=== PATIENT | female | born 1980 | race Caucasian/White ===

== ENCOUNTER 2018-06-01 16:42 | Emergency (ER) | payer MEDICAID ==
[~2018-06-01] VITALS: Ht 177.8 cm; Wt 128.0 kg
[2018-06-01] MEDS ORDERED: SODIUM CHLORIDE 0.9% 1,000 ML IV ONE (17:09)
[2018-06-01] MEDS ORDERED: MORPHINE SULFATE 4 MG/ML CPJ (NOT FOR IM USE) IV STA (17:09)
[2018-06-01] MEDS ORDERED: ONDANSETRON HCL 4MG/2ML VIAL IV STA (17:09)
[2018-06-01] MEDS ORDERED: TETRACAINE 0.5% OPHTH DROPS 4ML RIGHTEYE ONE (17:15)
[2018-06-01] MEDS ORDERED: FLUORESCEIN SODIUM 1MG/STRIP BOTHEYE ONE (17:15)
[2018-06-01 18:16] LABS: CHLORIDE 100 mEq/L (98-107)
[2018-06-01 18:17] LABS: EOSINOPHILS % 0.8 % (0.0-5.0); HEMATOCRIT. 36.4 % (36.0-48.0); HEMOGLOBIN. 11.3 g/dL (12.0-16.0); LYMPHOCYTES % 25.1 % (20.0-50.0); MEAN CORPUSCULAR HEMOGLOBIN 21.5 pg (28.0-32.0); MEAN CORPUSCULAR VOLUME 68.9 fL (81.0-99.0); MEAN PLATELET VOLUME 9.3 fl (7.4-10.4); MONOCYTES % 5.3 % (2.0-8.0); NEUTROPHILS % 67.8 % (40.0-76.0); PLATELET 283 x1000/uL (130-400); RED BLOOD CELL COUNT 5.28 mill/uL (4.2-5.4); RED CELL DISTRIBUTION WIDTH 16.2 % (11.6-14.6)
[2018-06-01 18:41] LABS: PLATELET ESTIMATE NORMAL
[2018-06-01 18:42] LABS: HCG SCREEN NEGATIVE
[2018-06-01 18:59] LABS: INR 0.9; PARTIAL THROMBOPLASTIN TIME 26.7 sec (23.4-31.0); PROTHROMBIN TIME 9.8 sec (9.4-11.6)
[2018-06-01] MEDS ORDERED: HYDROCODONE/ACETAMINOPHEN 5/325MG TABLET PO ONE (19:15)
[2018-06-01 19:35] VITALS: BP 133/87
== END 2018-06-01 19:48 | disposition home or self-care (01) ==
LOC: ER 16:42
DX: H57.11 Ocular pain, right eye (principal); H53.8 Other visual disturbances; H53.141 Visual discomfort, right eye; F41.9 Anxiety disorder, unspecified; E11.9 Type 2 diabetes mellitus without complications; F31.9 Bipolar disorder, unspecified; F12.10 Cannabis abuse, uncomplicated
CPT/HCPCS: 36415; 70450; 71045; 80053; 82962; 84703; 85025; 85610; 85730; 86850; 86900; 86901; 93005; 96361; 96374; 96375; 99285; J2270; J2405; J7030; Z7610

== ENCOUNTER 2018-08-06 19:29 | Emergency (ER) | payer MEDICAID, OTHER ==
[~2018-08-06] VITALS: Ht 177.8 cm; Wt 162.0 kg
[2018-08-06] MEDS ORDERED: SODIUM CHLORIDE 0.9% 1,000 ML IV ONE (20:05)
[2018-08-06] MEDS ORDERED: KETOROLAC 30MG/ML VIAL IV STA (20:05)
[2018-08-06] MEDS ORDERED: ONDANSETRON HCL 4MG/2ML INJ IV STA (20:05)
[2018-08-06 21:03] LABS: BASOPHILS % 1.1 % (0.0-2.0); EOSINOPHILS % 0.9 % (0.0-5.0); HEMATOCRIT. 37.4 % (36.0-48.0); HEMOGLOBIN. 11.8 g/dL (12.0-16.0); LYMPHOCYTES % 20.2 % (20.0-50.0); MEAN CORPUSCULAR HEMOGLOBIN 22.4 pg (28.0-32.0); MEAN CORPUSCULAR VOLUME 71.1 fL (81.0-99.0); MEAN PLATELET VOLUME 9.5 fl (7.4-10.4); MONOCYTES % 3.8 % (2.0-8.0); PLATELET 299 x1000/uL (130-400); RED BLOOD CELL COUNT 5.26 mill/uL (4.2-5.4); RED CELL DISTRIBUTION WIDTH 17.2 % (11.6-14.6)
[2018-08-06 21:06] LABS: CHLORIDE 100 mEq/L (98-107)
[2018-08-06 21:10] LABS: PROTHROMBIN TIME 9.7 sec (9.1-11.1)
[2018-08-06 21:11] LABS: CLARITY URINE TURBID (CLEAR); COLOR URINE YELLOW (YELLOW); KETONES URINE TRACE (NEGATIVE); LEUKOCYTE ESTERASE URINE 3+ (NEGATIVE); NITRITE URINE POSITIVE (NEGATIVE); OCCULT BLOOD URINE 2+ (NEGATIVE); PH URINE 5.5 (4.5-8.0); PROTEIN URINE 2+ (NEGATIVE); UROBILINOGEN URINE 0.2 E.U./dL (0.2-1.0)
[2018-08-06] MEDS ORDERED: IOHEXOL-300 100 ML BOTTLE ONE (23:31)
[2018-08-07] MEDS ORDERED: CEFTRIAXONE 1 G PREMIX 50 ML IV NR (01:15)
[2018-08-07 02:00] VITALS: BP 147/84
== END 2018-08-07 02:10 | disposition home or self-care (01) ==
LOC: ER 19:29
DX: R10.84 Generalized abdominal pain (principal); N39.0 Urinary tract infection, site not specified; E11.65 Type 2 diabetes mellitus with hyperglycemia; I10 Essential (primary) hypertension; D50.9 Iron deficiency anemia, unspecified; F31.9 Bipolar disorder, unspecified; F12.10 Cannabis abuse, uncomplicated; Z98.890 Other specified postprocedural states
CPT/HCPCS: 36415; 74177; 80053; 81003; 81025; 83690; 85025; 85610; 87077; 87086; 87186; 96361; 96365; 96375; 99285; J0696; J1885; J2405; J7030; Q9967; Z7610

== ENCOUNTER 2019-08-24 11:05 | Emergency (ER) | payer MEDICARE, OTHER ==
[~2019-08-24] VITALS: Ht 177.8 cm; Wt 177.0 kg
[2019-08-24] MEDS ORDERED: SODIUM CHLORIDE 0.9% 1,000 ML IV ONE (11:34)
[2019-08-24 11:44] LABS: BASOPHILS % 1.3 % (0.0-2.0); EOSINOPHILS % 0.8 % (0.0-5.0); HEMATOCRIT. 40.7 % (36.0-48.0); HEMOGLOBIN. 13.3 g/dL (12.0-16.0); LYMPHOCYTES % 19.4 % (20.0-50.0); MEAN CORPUSCULAR HEMOGLOBIN 25.5 pg (28.0-32.0); MEAN PLATELET VOLUME 9.4 fl (7.4-10.4); MONOCYTES % 4.4 % (2.0-8.0); NEUTROPHILS % 74.1 % (40.0-76.0); PLATELET 235 x1000/uL (130-400); RED BLOOD CELL COUNT 5.22 mill/uL (4.2-5.4); RED CELL DISTRIBUTION WIDTH 15.1 % (11.6-14.6)
[2019-08-24] MEDS ORDERED: METOCLOPRAMIDE HCL 10MG/2ML VIAL IV ONE (11:45)
[2019-08-24] MEDS ORDERED: DIPHENHYDRAMINE 50MG/ML VIAL IV ONE (11:45)
[2019-08-24 11:50] LABS: PROTHROMBIN TIME 10.4 sec (9.6-11.0)
[2019-08-24 11:51] LABS: CHLORIDE 99 mEq/L (98-107)
[2019-08-24 12:02] LABS: BETA HYDROXYBUTYRATE 1.6 mMol/L (0.0-0.3)
[2019-08-24] MEDS ORDERED: KETOROLAC 30MG/ML VIAL IV ONE (12:45)
[2019-08-24 12:53] LABS: HCG SCREEN NEGATIVE
[2019-08-24 14:53] LABS: CLARITY URINE CLOUDY (CLEAR); COLOR URINE YELLOW (YELLOW); KETONES URINE 3+ (NEGATIVE); LEUKOCYTE ESTERASE URINE NEGATIVE (NEGATIVE); NITRITE URINE NEGATIVE (NEGATIVE); OCCULT BLOOD URINE TRACE (NEGATIVE); PROTEIN URINE 2+ (NEGATIVE); SPECIFIC GRAVITY URINE 1.042 (1.005-1.030); UROBILINOGEN URINE 0.2 E.U./dL (0.2-1.0)
[2019-08-24 15:28] VITALS: BP 128/95
== END 2019-08-24 15:29 | disposition home or self-care (01) ==
LOC: ER 11:05
DX: G43.909 Migraine, unspecified, not intractable, without status migrainosus (principal); E11.65 Type 2 diabetes mellitus with hyperglycemia; E86.0 Dehydration; I10 Essential (primary) hypertension; F12.10 Cannabis abuse, uncomplicated; E78.00 Pure hypercholesterolemia, unspecified; F32.9 Major depressive disorder, single episode, unspecified; Z90.49 Acquired absence of other specified parts of digestive tract; Z79.4 Long term (current) use of insulin
CPT/HCPCS: 36415; 70450; 80053; 81003; 82010; 83690; 84484; 84703; 85025; 85610; 87077; 87086; 87186; 93005; 96361; 96374; 96375; 99284; J1200; J1885; J2765; J7030

== ENCOUNTER 2024-02-14 10:05 | Inpatient (IN) | payer BC, MEDICAID ==
[~2024-02-14] VITALS: Ht 170.2 cm; Wt 222.3 kg
[2024-02-14 11:08] LABS: ALANINE AMINOTRANSFERASE 24 IU/L (10-49); ALBUMIN 3.2 g/dL (3.2-4.8); ASPARTATE AMINOTRANSFERASE 25 IU/L (<34); BILIRUBIN TOTAL 0.3 mg/dL (0.1-1.0); CALCIUM 7.6 mg/dL (8.7-10.4); CARBON DIOXIDE 27 mEq/L (21-32); CHLORIDE 107 mEq/L (98-107); CREATININE 1.4 mg/dL (0.6-1.0); GLUCOSE 61 mg/dL (70-105); SODIUM 138 mEq/L (136-145); UREA NITROGEN BLOOD 26 mg/dL (9-23)
[2024-02-14 11:11] LABS: HCG SCREEN NEGATIVE
[2024-02-14 11:18] LABS: BASOPHILS % 1.5 % (0.0-2.0); DIFFERENTIAL COMMENT 0; HEMATOCRIT. 29.6 % (36.0-48.0); MEAN CORPUSCULAR HEMOGLOBIN 24.7 pg (28.0-32.0); MEAN CORPUSCULAR HGB CONC 30.6 g/dL (31.0-37.0); MEAN CORPUSCULAR VOLUME 80.6 fL (81.0-99.0); MEAN PLATELET VOLUME 9.6 fl (7.4-10.4); MONOCYTES % 7.4 % (2.0-8.0); NEUTROPHILS % 73.1 % (40.0-76.0); PLATELET 172 x1000/uL (130-400); RED BLOOD CELL COUNT 3.67 mill/uL (4.2-5.4); RED CELL DISTRIBUTION WIDTH 17.8 % (11.6-14.6); WHITE BLOOD COUNT 8.3 x1000/uL (4.5-11.0)
[2024-02-14] MEDS: DEXTROSE 50% WATER 50ML SYRINGE IV ONE (13:32)
[2024-02-14 14:26] LABS: DIFFERENTIAL COMMENT 0; EOSINOPHILS % 0.8 % (0.0-5.0); HEMATOCRIT. 31.6 % (36.0-48.0); HEMOGLOBIN. 9.7 g/dL (12.0-16.0); LYMPHOCYTES % 10.7 % (20.0-50.0); MEAN CORPUSCULAR HEMOGLOBIN 24.5 pg (28.0-32.0); MEAN CORPUSCULAR HGB CONC 30.8 g/dL (31.0-37.0); MEAN CORPUSCULAR VOLUME 79.5 fL (81.0-99.0); MEAN PLATELET VOLUME 9.2 fl (7.4-10.4); MONOCYTES % 4.4 % (2.0-8.0); NEUTROPHILS % 83.1 % (40.0-76.0); PLATELET 178 x1000/uL (130-400); RED BLOOD CELL COUNT 3.97 mill/uL (4.2-5.4); RED CELL DISTRIBUTION WIDTH 18.2 % (11.6-14.6); WHITE BLOOD COUNT 12.4 x1000/uL (4.5-11.0)
[2024-02-14 14:35] LABS: PROTHROMBIN TIME 11.5 sec (9.6-11.0)
[2024-02-14 14:41] LABS: ALANINE AMINOTRANSFERASE 24 IU/L (10-49); ALBUMIN 3.6 g/dL (3.2-4.8); ASPARTATE AMINOTRANSFERASE 22 IU/L (<34); BILIRUBIN TOTAL 0.4 mg/dL (0.1-1.0); CARBON DIOXIDE 25 mEq/L (21-32); CHLORIDE 107 mEq/L (98-107); CREATININE 1.4 mg/dL (0.6-1.0); POTASSIUM 4.2 mEq/L (3.5-5.1); PROTEIN TOTAL 7.1 g/dL (6.0-8.3); SODIUM 136 mEq/L (136-145); UREA NITROGEN BLOOD 27 mg/dL (9-23)
[2024-02-14 14:47] LABS: GLUCOSE 43 mg/dL (70-105)
[2024-02-14 15:02] LABS: HCG SCREEN NEGATIVE
[2024-02-14] MEDS ORDERED: IPRATROPIUM/ALBUTEROL 0.5-3(2.5)MG/3ML NEB HHN PRN (16:30)
[2024-02-14] MEDS ORDERED: ACETAMINOPHEN 325MG TABLET PO PRN (16:30)
[2024-02-14 17:11] LABS: IRON 32 ug/dL (50-170); TOTAL IRON BINDING CAPACITY 333 ug/dl (250-425)
[2024-02-14 17:13] LABS: BETA HYDROXYBUTYRATE < 0.1 mMol/L (0.0-0.3)
[2024-02-14 17:14] LABS: CORTISOL 15.5 ucg/dL; FERRITIN 26 ng/mL (10-291); VITAMIN B12 SERUM 1271 pg/mL (211-911)
[2024-02-14] MEDS ORDERED: HYDRALAZINE 20MG/ML VIAL IV PRN (17:30)
[2024-02-14] MEDS ORDERED: ATROPINE SULFATE 1MG/ML VIAL IV PRN (17:30)
[2024-02-14] MEDS: CEFTRIAXONE 1GM/50ML 50 ML IV SCH (18:00)
[2024-02-14] MEDS: DEXTROSE 50% WATER 50ML SYRINGE IV PRN (18:19)
[2024-02-14] MEDS: BLOOD SUGAR DIAGNOSTIC STRIP TEST SCH (18:19)
[2024-02-14] MEDS: DEXTROSE 5% WATER 1,000 ML IV SCH (18:20)
[2024-02-14] MEDS: AMLODIPINE 5MG TABLET PO NR (18:20)
[2024-02-14] MEDS ORDERED: DEXTROSE 5% WATER 1,000 ML IV PRN (18:45)
[2024-02-14] MEDS ORDERED: LORAZEPAM 4MG/ML INJ IV PRN (19:00)
[2024-02-14] MEDS: HYDRALAZINE 20MG/ML VIAL IV PRN (19:12)
[2024-02-14] MEDS: HYDRALAZINE HCL 100MG TABLET PO SCH (19:26)
[2024-02-14] MEDS: LISINOPRIL 40MG TABLET PO SCH (19:27)
[2024-02-14] MEDS: FUROSEMIDE 40MG/4ML VIAL IVP SCH (19:27)
[2024-02-14] MEDS: ATORVASTATIN CALCIUM 40MG TABLET PO SCH (22:05)
[2024-02-14] MEDS: TIZANIDINE HCL 2MG TABLET PO SCH (22:05)
[2024-02-14 22:38] VITALS: BP 180/97; PULSE 56; RESP 14; TEMP 98
[2024-02-14 23:44] LABS: CREATINE KINASE 142 IU/L (34-145); TROPONIN I HIGH SENSITIVITY 7 ng/L (3.0-34)
[2024-02-15 04:16] VITALS: BP 170/100; PULSE 56; RESP 14; TEMP 97.7
[2024-02-15 08:00] VITALS: BP 156/88; PULSE 60; RESP 16; TEMP 98.4
[2024-02-15] MEDS ORDERED: AMLODIPINE 10MG TABLET PO SCH (09:00)
[2024-02-15 09:24] LABS: BASOPHILS % 1.2 % (0.0-2.0); DIFFERENTIAL COMMENT 0; EOSINOPHILS % 1.7 % (0.0-5.0); HEMATOCRIT. 31.4 % (36.0-48.0); HEMOGLOBIN. 9.8 g/dL (12.0-16.0); LYMPHOCYTES % 15.7 % (20.0-50.0); MEAN CORPUSCULAR HEMOGLOBIN 24.9 pg (28.0-32.0); MEAN CORPUSCULAR HGB CONC 31.2 g/dL (31.0-37.0); MEAN CORPUSCULAR VOLUME 79.9 fL (81.0-99.0); MEAN PLATELET VOLUME 9.5 fl (7.4-10.4); MONOCYTES % 5.1 % (2.0-8.0); NEUTROPHILS % 76.3 % (40.0-76.0); PLATELET 209 x1000/uL (130-400); RED BLOOD CELL COUNT 3.93 mill/uL (4.2-5.4); RED CELL DISTRIBUTION WIDTH 17.9 % (11.6-14.6); WHITE BLOOD COUNT 9.3 x1000/uL (4.5-11.0)
[2024-02-15] MEDS: PANTOPRAZOLE SODIUM 40 MG/VIAL IV SCH (09:25)
[2024-02-15] MEDS: PREGABALIN 50 MG CAPSULE PO SCH (09:27)
[2024-02-15 09:49] LABS: ALANINE AMINOTRANSFERASE 22 IU/L (10-49); ALBUMIN 3.5 g/dL (3.2-4.8); ASPARTATE AMINOTRANSFERASE 27 IU/L (<34); BILIRUBIN TOTAL 0.5 mg/dL (0.1-1.0); CALCIUM 8.2 mg/dL (8.7-10.4); CARBON DIOXIDE 26 mEq/L (21-32); CHLORIDE 104 mEq/L (98-107); CHOLESTEROL 97 mg/dL (<200); CREATINE KINASE 128 IU/L (34-145); CREATININE 1.2 mg/dL (0.6-1.0); GLUCOSE 109 mg/dL (70-105); HDL CHOLESTEROL 58 mg/dL (>65); LDL CHOLESTEROL 23 mg/dL (5-100); POTASSIUM 4.2 mEq/L (3.5-5.1); PROTEIN TOTAL 6.7 g/dL (6.0-8.3); SODIUM 137 mEq/L (136-145); T4 FREE 1.16 ng/dL (0.89-1.76); THYROID STIMULATING HORMONE 3.25 uIU/mL (0.55-4.78); TRIGLYCERIDE 78 mg/dL (0-150); TROPONIN I HIGH SENSITIVITY 7 ng/L (3.0-34); UREA NITROGEN BLOOD 23 mg/dL (9-23)
[2024-02-15] MEDS: DEXT 5%/0.9% NACL 1,000 ML IV ONE (10:44)
[2024-02-15 12:00] VITALS: BP 163/79; PULSE 53; RESP 13; TEMP 98.4
[2024-02-15] MEDS ORDERED: DEXTROSE 50% WATER 50ML SYRINGE IV PRN (13:45)
[2024-02-15 16:00] VITALS: BP 156/88; PULSE 54; RESP 20; TEMP 98.4
[2024-02-15] MEDS: BLOOD SUGAR DIAGNOSTIC STRIP TEST SCH (17:09)
[2024-02-15] MEDS: INSULIN LISPRO 100 UNITS/ML SUBCUT SCH (17:20)
[2024-02-15] MEDS ORDERED: INSULIN LISPRO 100 UNITS/ML SUBCUT SCH ×2 (17:20)
[2024-02-15 20:00] VITALS: BP 184/105; PULSE 54; RESP 16; TEMP 97.8
[2024-02-15] MEDS: HYDROCODONE/ACETAMINOPHEN 10/325MG TABLET PO PRN (23:14)
[2024-02-16] VITALS: BP 181/98; PULSE 58; RESP 12; TEMP 98.1
[2024-02-16 00:48] LABS: CLARITY URINE CLEAR (CLEAR); COLOR URINE YELLOW (YELLOW); GLUCOSE URINE NEGATIVE (NEGATIVE); KETONES URINE NEGATIVE (NEGATIVE); LEUKOCYTE ESTERASE URINE NEGATIVE (NEGATIVE); NITRITE URINE NEGATIVE (NEGATIVE); OCCULT BLOOD URINE 2+ (NEGATIVE); PROTEIN URINE 3+ (NEGATIVE); SPECIFIC GRAVITY URINE 1.013 (1.005-1.030)
[2024-02-16 00:59] LABS: *AMPHETAMINES SCREEN URINE NEGATIVE (NEGATIVE); *BARBITURATES SCREEN URINE NEGATIVE (NEGATIVE); *BENZODIAZEPINES SCREEN URINE NEGATIVE (NEGATIVE); *COCAINE SCREEN URINE NEGATIVE (NEGATIVE); CANNABINOID URINE SCREEN NEGATIVE (NEGATIVE); ECSTASY MDMA SCREEN URINE NEGATIVE (NEGATIVE); METHADONE URINE SCREEN Neg (NEGATIVE); OPIATES URINE SCREEN NEGATIVE (NEGATIVE); PHENCYCLIDINE URINE SCREEN NEGATIVE (NEGATIVE)
[2024-02-16 02:30] LABS: SQUAMOUS EPITHELIAL CELL URINE FEW /lpf (RARE/1+)
[2024-02-16 02:31] LABS: RBC URINE 15-25 /hpf (0-2); WBC URINE 0-2 /hpf (0-2)
[2024-02-16 02:32] LABS: BACTERIA URINE NONE SEEN
[2024-02-16 04:00] VITALS: BP 159/86; PULSE 66; RESP 18; TEMP 98
[2024-02-16 07:28] LABS: CALCIUM 8.2 mg/dL (8.7-10.4); CREATININE 1.2 mg/dL (0.6-1.0); POTASSIUM 4.4 mEq/L (3.5-5.1)
[2024-02-16 08:00] VITALS: BP 154/95; RESP 19; TEMP 98.2
[2024-02-16] MEDS ORDERED: LORAZEPAM 2MG/ML INJ IV PRN (09:36)
[2024-02-16] MEDS ORDERED: NALOXONE HCL 0.4MG/ML VIAL IV PRN (09:45)
[2024-02-16] MEDS ORDERED: TIZA-191 PO (10:10)
[2024-02-16] MEDS ORDERED: LANTUSUD SUBCUT (10:10)
[2024-02-16] MEDS ORDERED: LIP40 PO (10:10)
[2024-02-16] MEDS ORDERED: HYDR100T26 PO (10:10)
[2024-02-16] MEDS ORDERED: LISI40TA13 PO (10:10)
[2024-02-16] MEDS ORDERED: PREG50CA PO (10:10)
[2024-02-16 12:00] VITALS: BP 133/83; PULSE 58; RESP 18; TEMP 94
[2024-02-16] MEDS: HYDRALAZINE HCL 100MG TABLET PO SCH (13:45)
[2024-02-16 15:05] VITALS: BP 133/83; PULSE 58; TEMP 96; O2SAT 98
[2024-02-16 16:00] VITALS: BP 138/86; PULSE 56; RESP 19; TEMP 96
[2024-02-17] MEDS ORDERED: FAMOTIDINE 20MG TABLET PO SCH (09:00)
[2024-02-18 13:12] LABS: INSULIN 3.3 uIU/mL (2.6-24.9)
== END 2024-02-16 17:26 | disposition home or self-care (01) | DRG 917 ==
LOC: ER 10:05 → EDBEDREQ 13:29 → 3WST 21:22
PROVIDERS: ADMIT Internal Medicine; ATTEND Internal Medicine
DX: T38.3X1A Poisoning by insulin and oral hypoglycemic [antidiabetic] drugs, accidental (unintentional), initial encounter (principal); G93.41 Metabolic encephalopathy; N17.9 Acute kidney failure, unspecified; Z68.45 Body mass index [BMI] 70 or greater, adult; E11.649 Type 2 diabetes mellitus with hypoglycemia without coma; D72.829 Elevated white blood cell count, unspecified; F41.9 Anxiety disorder, unspecified; I45.10 Unspecified right bundle-branch block; N93.9 Abnormal uterine and vaginal bleeding, unspecified; E66.01 Morbid (severe) obesity due to excess calories; D50.9 Iron deficiency anemia, unspecified; F31.9 Bipolar disorder, unspecified; E78.00 Pure hypercholesterolemia, unspecified; G47.33 Obstructive sleep apnea (adult) (pediatric); I95.9 Hypotension, unspecified; R00.1 Bradycardia, unspecified; N18.9 Chronic kidney disease, unspecified; I12.9 Hypertensive chronic kidney disease with stage 1 through stage 4 chronic kidney disease, or unspecified chronic kidney disease; E11.22 Type 2 diabetes mellitus with diabetic chronic kidney disease; Z90.49 Acquired absence of other specified parts of digestive tract; Z79.899 Other long term (current) drug therapy; Z98.891 History of uterine scar from previous surgery; Z79.4 Long term (current) use of insulin; Y92.89 Other specified places as the place of occurrence of the external cause
CPT/HCPCS: 36415; 71045; 76770; 80048; 80053; 80061; 80305; 81003; 82010; 82306; 82533; 82550; 82553; 82607; 82728; 82962; 83036; 83525; 83540; 83550; 83605; 83880; 84145; 84439; 84443; 84484; 84681; 84703; 85025; 93005; 93970; 99291; C9113; J0360; J0696; J1815; J1940